=== PATIENT | female | born 1965 | race Caucasian/White ===

== ENCOUNTER 2018-02-27 23:40 | Emergency (ER) | payer MEDICAID ==
[~2018-02-27] VITALS: Ht 157.5 cm; Wt 59.0 kg
[2018-02-27 23:44] VITALS: BP 108/63; Ht 157.5 cm; Wt 59.0 kg
== END 2018-02-28 02:04 | disposition home or self-care (01) ==
LOC: ED 23:40
DX: M79.605 Pain in left leg (principal); M79.604 Pain in right leg; T20.20XA Burn of second degree of head, face, and neck, unspecified site, initial encounter; X08.8XXA Exposure to other specified smoke, fire and flames, initial encounter; Y93.89 Activity, other specified; Y99.8 Other external cause status; Y92.89 Other specified places as the place of occurrence of the external cause; M79.641 Pain in right hand